=== PATIENT | male | born 1975 | race Caucasian/White ===

== ENCOUNTER 2019-11-14 20:24 | Emergency (ER) | payer BC ==
[~2019-11-14] VITALS: Ht 185.4 cm; Wt 81.8 kg
[2019-11-14 20:33] VITALS: Ht 185.4 cm; Wt 81.8 kg
[2019-11-14] MEDS ORDERED: AUGMENTIN 875-11 TAB PO (20:55)
[2019-11-14] MEDS ORDERED: ULTRAM50 MG PO (20:55)
[2019-11-14 21:30] VITALS: BP 112/78
== END 2019-11-14 21:30 | disposition home or self-care (01) ==
LOC: D.ER 20:24
DX: S61.031A Puncture wound without foreign body of right thumb without damage to nail, initial encounter (principal); X58.XXXA Exposure to other specified factors, initial encounter

== ENCOUNTER 2020-04-12 22:15 | Emergency (ER) | payer BC ==
[~2020-04-12] VITALS: Ht 185.4 cm; Wt 77.3 kg
[~2020-04-12 22:15] MED LIST: AUGMENTIN 875-11 TAB PO; ULTRAM50 MG PO
[2020-04-12 22:20] VITALS: BP 130/76; Ht 185.4 cm; Wt 77.3 kg
== END 2020-04-12 23:03 | disposition home or self-care (01) ==
LOC: D.ER 22:15
DX: F32.9 Major depressive disorder, single episode, unspecified (principal); Z71.1 Person with feared health complaint in whom no diagnosis is made